=== PATIENT | female | born 1935 | race Caucasian/White ===

== ENCOUNTER 2021-01-04 16:33 | Emergency (ER) | payer OTHER, SELFPAY ==
[~2021-01-04 16:33] MED LIST: ASPIRIN EC81 MG PO; ATORVASTATIN CA80 MG PO; CALCIUM + D3 E1 EACH PO; DOXYCYCLINE MO100 MG PO; LOSARTAN-HCTZ1 EAC2 PO; MOBIC7.5 MG PO; NITROQUIK SL0.4 MG PO; PREDNISONE20 MG PO; PRILOSEC20 MG PO; ULTRAM50 MG PO; VENTOLIN HFA IN18 GM PO
[2021-01-04 17:16] LABS: BASOPHIL 1.2 % (0-2); EOSINOPHIL 2.6 % (0-7); HCT 36.1 % (37.0-47.0); HGB 11.7 g/dl (12.5-16.0); LYMPHOCYTE 21.6 % (15-48); MCH 31.1 pg (25.0-31.0); MCHC 32.4 g/dL (32.0-36.0); MONOCYTE 9.1 % (0-12); MPV 9.9 fL (6.0-9.5); NEUTROPHIL 65.4 % (41-80); NRBC 0; PLT 283 K/uL (150-400); RBC 3.76 M/uL (4.20-5.40); RDW 14.8 % (11.5-14.0); WBC 7.8 K/uL (4.0-10.5)
[2021-01-04 17:29] LABS: INR 1.11 (0.9-1.2); PROTHROMBIN TIME 13.6 SECONDS (11.4-13.6); PTT 25.8 SECONDS (22.2-34.7)
[2021-01-04 18:07] LABS: ALBUMIN 3.4 g/dL (3.4-5.0); BILIRUBIN - TOTAL 0.3 mg/dL (0.2-1.0); BUN/CREAT RATIO (CALC) 20.3 RATIO; CREATININE 1.23 mg/dL (0.51-0.95); POTASSIUM 4.9 mmol/L (3.5-5.1); TOTAL PROTEIN 6.4 g/dL (6.4-8.2)
== END 2021-01-04 22:10 | disposition home or self-care (01) ==
LOC: FER 16:33
PROVIDERS: Emergency Medicine
DX: R07.9 Chest pain, unspecified (principal); R53.1 Weakness; I25.2 Old myocardial infarction; I25.10 Atherosclerotic heart disease of native coronary artery without angina pectoris; I10 Essential (primary) hypertension; F17.210 Nicotine dependence, cigarettes, uncomplicated; Z98.890 Other specified postprocedural states; Z95.5 Presence of coronary angioplasty implant and graft; Z88.8 Allergy status to other drugs, medicaments and biological substances; Z79.899 Other long term (current) drug therapy
CPT/HCPCS: 36415; 71045; 80053; 84484; 85025; 85610; 85730; 93005

== ENCOUNTER 2021-02-09 13:38 | Emergency (ER) | payer OTHER, SELFPAY ==
[2021-02-09 15:01] LABS: ALBUMIN 3.7 g/dL (3.4-5.0); BILIRUBIN - TOTAL 0.3 mg/dL (0.2-1.0); BUN/CREAT RATIO (CALC) 20.1 RATIO; CREATININE 1.34 mg/dL (0.51-0.95); GLOBULIN (CALCULATION) 3.8 g/dL; POTASSIUM 4.3 mmol/L (3.5-5.1); TOTAL PROTEIN 7.5 g/dL (6.4-8.2)
[2021-02-09 15:02] LABS: BASOPHIL 1.3 % (0-2); EOSINOPHIL 3.1 % (0-7); HGB 12.2 g/dl (12.5-16.0); LYMPHOCYTE 27.5 % (15-48); MCH 31.4 pg (25.0-31.0); MCV 95.4 fL (78.0-100.0); MONOCYTE 9.5 % (0-12); MPV 10.2 fL (6.0-9.5); NEUTROPHIL 58.3 % (41-80); NRBC 0; PLT 290 K/uL (150-400); RBC 3.88 M/uL (4.20-5.40); RDW 14.1 % (11.5-14.0); WBC 7.7 K/uL (4.0-10.5)
[2021-02-09 15:07] LABS: INR 1.1 (0.9-1.2); PROTHROMBIN TIME 13.5 SECONDS (11.4-13.6)
[2021-02-09 15:08] LABS: PTT 25.8 SECONDS (22.2-34.7)
== END 2021-02-09 19:08 | disposition home or self-care (01) ==
LOC: FER 13:38
PROVIDERS: Emergency Medicine
DX: R07.89 Other chest pain (principal); I10 Essential (primary) hypertension; I25.2 Old myocardial infarction; E78.5 Hyperlipidemia, unspecified; Z90.49 Acquired absence of other specified parts of digestive tract; Z88.8 Allergy status to other drugs, medicaments and biological substances; Z79.82 Long term (current) use of aspirin; Z79.899 Other long term (current) drug therapy
CPT/HCPCS: 36415; 71045; 80053; 84484; 85025; 85610; 85730; 93005

== ENCOUNTER → 2021-12-07 | Day surgery (SDC) | payer MEDICARE ==
[~2021-12-07] VITALS: Ht 162.6 cm; Wt 71.2 kg
[~2021-12-07] MED LIST changes: +LIPITOR20 MG PO; +LOPRESSOR25 MG PO; +LOPRESSOR50 MG PO; +PRINIVIL20 MG PO
[2021-12-07 08:27] LABS: HCT 38.4 % (37.0-47.0); HGB 12.6 g/dl (12.5-16.0); MCH 30.5 pg (25.0-31.0); MCHC 32.8 g/dL (32.0-36.0); MPV 10.1 fL (6.0-9.5); RBC 4.13 M/uL (4.20-5.40); RDW 14.7 % (11.5-14.0); WBC 8.1 K/uL (4.0-10.5)
[2021-12-07 08:46] LABS: ALBUMIN 3.6 g/dL (3.4-5.0); BILIRUBIN - TOTAL 0.3 mg/dL (0.2-1.0); BUN/CREAT RATIO (CALC) 22.5 RATIO; CREATININE 1.2 mg/dL (0.51-0.95); GLOBULIN (CALCULATION) 3.6 g/dL; POTASSIUM 4.6 mmol/L (3.5-5.1); TOTAL PROTEIN 7.2 g/dL (6.4-8.2)
== END | disposition home or self-care (01) ==
LOC: FAS 07:55
PROVIDERS: Surgery
DX: K29.70 Gastritis, unspecified, without bleeding (principal); K57.30 Diverticulosis of large intestine without perforation or abscess without bleeding; I25.2 Old myocardial infarction; Z79.899 Other long term (current) drug therapy; Z88.8 Allergy status to other drugs, medicaments and biological substances; Z95.5 Presence of coronary angioplasty implant and graft
CPT/HCPCS: 36415; 80053; J2704; J7120

== ENCOUNTER 2022-08-03 13:16 | Emergency (ER) | payer MEDICARE ==
[2022-08-03 13:54] LABS: BASOPHIL 0.7 % (0-2); EOSINOPHIL 0.4 % (0-7); HCT 39.3 % (37.0-47.0); HGB 12.7 g/dl (12.5-16.0); LYMPHOCYTE 12.8 % (15-48); MCH 30.7 pg (25.0-31.0); MCHC 32.3 g/dL (32.0-36.0); MCV 94.9 fL (78.0-100.0); MONOCYTE 4.4 % (0-12); MPV 9.7 fL (6.0-9.5); NEUTROPHIL 81.4 % (41-80); NRBC 0; PLT 332 K/uL (150-400); RBC 4.14 M/uL (4.20-5.40); RDW 14.8 % (11.5-14.0); WBC 11.2 K/uL (4.0-10.5)
[2022-08-03 14:00] LABS: INR 0.98 (0.9-1.2); PROTHROMBIN TIME 12.7 SECONDS (11.9-13.9); PTT 23.5 SECONDS (24.9-34.6)
[2022-08-03 14:01] LABS: D-DIMER 1.14 ug/mLFEU (0.00-0.41)
[2022-08-03 14:11] LABS: BUN/CREAT RATIO (CALC) 27.6 RATIO; CREATININE 1.27 mg/dL (0.51-0.95); POTASSIUM 4.6 mmol/L (3.5-5.1)
== END 2022-08-03 16:10 | disposition home or self-care (01) ==
LOC: FER 13:16
PROVIDERS: Emergency Medicine
DX: R07.89 Other chest pain (principal); M54.10 Radiculopathy, site unspecified; I10 Essential (primary) hypertension; F17.210 Nicotine dependence, cigarettes, uncomplicated; Z79.82 Long term (current) use of aspirin; Z79.899 Other long term (current) drug therapy
CPT/HCPCS: 36415; 71046; 80048; 82553; 84484; 85025; 85379; 85610; 85730; 93005

== ENCOUNTER 2022-08-22 13:50 | Emergency (ER) | payer MEDICARE ==
[2022-08-22 17:32] LABS: BASOPHIL 0.2 % (0-2); EOSINOPHIL 0.3 % (0-7); HCT 45.4 % (37.0-47.0); HGB 14.6 g/dl (12.5-16.0); LYMPHOCYTE 21.6 % (15-48); MCH 30.3 pg (25.0-31.0); MCHC 32.2 g/dL (32.0-36.0); MCV 94.2 fL (78.0-100.0); MONOCYTE 7.6 % (0-12); MPV 10.2 fL (6.0-9.5); NEUTROPHIL 69.9 % (41-80); NRBC 0; PLT 225 K/uL (150-400); RBC 4.82 M/uL (4.20-5.40); RDW 15.4 % (11.5-14.0)
[2022-08-22 17:34] LABS: BILIRUBIN 1+ mg/dL (NEGATIVE); BLOOD NEGATIVE Ery/uL (NEGATIVE); CLARITY CLEAR (CLEAR); COLOR YELLOW (YELLOW); GLUCOSE (U) NORMAL (NORMAL); LEUKOCYTES TRACE Leu/uL (NEGATIVE); NITRITE NEGATIVE (NEGATIVE); PROTEIN 1+ mg/dL (NEGATIVE); SPECIFIC GRAVITY 1.025 (1.001-1.030); UROBILINOGEN 0.2 mg/dL (0.2-1.0)
[2022-08-22 17:45] LABS: ALBUMIN 3.8 g/dL (3.4-5.0); BILIRUBIN - TOTAL 0.4 mg/dL (0.2-1.0); BUN/CREAT RATIO (CALC) 24.2 RATIO; CREATININE 1.53 mg/dL (0.51-0.95); GLOBULIN (CALCULATION) 4.1 g/dL; POTASSIUM 4.4 mmol/L (3.5-5.1); TOTAL PROTEIN 7.9 g/dL (6.4-8.2)
[2022-08-22 17:46] LABS: BACTERIA 1+
[2022-08-22 17:47] LABS: AMORPHOUS URATES CRYSTALS TRACE
[2022-08-22 17:50] LABS: LACTIC ACID 2.4 mmol/L (0.4-1.9)
[2022-08-22 18:12] LABS: INFLUENZA A NAA NEGATIVE (NEGATIVE)
[2022-08-22 18:31] LABS: CORONAVIRUS 2019 SARS-COV-2 POSITIVE (NEGATIVE)
[2022-08-22] MEDS ORDERED: PAXLOVID 150-11 EACH PO (20:21)
[2022-08-22] MEDS ORDERED: ONDANSETRON ODT4 MG PO (20:21)
== END 2022-08-22 20:40 | disposition home or self-care (01) ==
LOC: FER 13:50
PROVIDERS: Emergency Medicine
DX: U07.1 COVID-19 (principal); N17.9 Acute kidney failure, unspecified; I10 Essential (primary) hypertension; F17.210 Nicotine dependence, cigarettes, uncomplicated; Z88.8 Allergy status to other drugs, medicaments and biological substances; Z79.82 Long term (current) use of aspirin; Z79.899 Other long term (current) drug therapy
CPT/HCPCS: 36415; 80053; 81001; 83605; 84145; 85025; 87040; 87088; 93005; J7040; U0002